=== PATIENT | female | born 1955 | race Caucasian/White ===

== ENCOUNTER 2025-03-12 07:29 | Day surgery (SDC) | payer MEDICARE ==
[2025-03-12] MEDS ORDERED: Propofol 200 MG/20 ML SDV ONE (07:58)
[2025-03-12] MEDS ORDERED: fentaNYL 100 MCG/2 ML SDV ONE (07:58)
[2025-03-12] MEDS: Lactated Ringers 1,000 ML IV SCH (08:44)
== END 2025-03-12 10:58 | disposition home or self-care (01) ==
LOC: JP.SDS 07:29
PROVIDERS: ATTEND Surgery
DX: K29.50 Unspecified chronic gastritis without bleeding (principal); K31.A0 Gastric intestinal metaplasia, unspecified; K22.89 Other specified disease of esophagus; R13.10 Dysphagia, unspecified; E11.9 Type 2 diabetes mellitus without complications; F17.200 Nicotine dependence, unspecified, uncomplicated
CPT/HCPCS: 00731; 43239; J2704; J3010; J7120; 88305; 88342